=== PATIENT | female | born 1930 ===

== ENCOUNTER 2017-10-07 06:05 | Inpatient (IN) | payer OTHER ==
[~2017-10-07] VITALS: Ht 152.4 cm; Wt 46.7 kg
[2017-10-07] MEDS ORDERED: SYNTHROID50 MCG (06:28)
[2017-10-15] MEDS ORDERED: PYRIDOXINE HCL100 M1 PO (13:04)
[2017-10-15] MEDS ORDERED: Neurin-Sl Tablet Sl SL (13:04)
[2017-10-15] MEDS ORDERED: FAMOTIDINE20 MG PO (13:04)
[2017-10-15] MEDS ORDERED: Intestinex CAP PO (13:04)
[2017-10-15] MEDS ORDERED: SYNTHROID50 MCG PO (13:04)
[2017-10-15] MEDS ORDERED: LEVAQUIN750 MG PO (13:09)
[2017-10-15] MEDS ORDERED: BACTRIM DS TAB1 EACH PO (13:09)
== END 2017-10-15 14:02 | disposition home or self-care (01) | DRG 330 ==
LOC: ER 06:05 → SEC-K 11:36 → MEDJ 11:36 → MEDI 10-10 16:13 → SURH 10-10 16:13
PROVIDERS: Colon & Rectal Surgery
PROC: BB24ZZZ Computerized Tomography (CT Scan) of Bilateral Lungs (ICD-10-PCS; 2017-10-07)
PROC: 4A033R1 Measurement of Arterial Saturation, Peripheral, Percutaneous Approach (ICD-10-PCS; 2017-10-07)
PROC: 30233N1 Transfusion of Nonautologous Red Blood Cells into Peripheral Vein, Percutaneous Approach (ICD-10-PCS; 2017-10-07)
PROC: 0DBB4ZZ Excision of Ileum, Percutaneous Endoscopic Approach (ICD-10-PCS; 2017-10-10)
PROC: 0DBU4ZZ Excision of Omentum, Percutaneous Endoscopic Approach (ICD-10-PCS; 2017-10-10)
PROC: 07TC4ZZ Resection of Pelvis Lymphatic, Percutaneous Endoscopic Approach (ICD-10-PCS; 2017-10-10)
PROC: 4A12X4Z Monitoring of Cardiac Electrical Activity, External Approach (ICD-10-PCS; 2017-10-10)
PROC: 0DTF4ZZ Resection of Right Large Intestine, Percutaneous Endoscopic Approach (ICD-10-PCS; principal; 2017-10-10 09:15)
PROC: 3E0F7GC Introduction of Other Therapeutic Substance into Respiratory Tract, Via Natural or Artificial Opening (ICD-10-PCS; 2017-10-11)
DX: C18.2 Malignant neoplasm of ascending colon (principal); J47.1 Bronchiectasis with (acute) exacerbation; T81.4XXA Infection following a procedure, initial encounter; L03.311 Cellulitis of abdominal wall; D50.0 Iron deficiency anemia secondary to blood loss (chronic); E03.8 Other specified hypothyroidism; F03.90 Unspecified dementia, unspecified severity, without behavioral disturbance, psychotic disturbance, mood disturbance, and anxiety; J84.112 Idiopathic pulmonary fibrosis; H91.8X3 Other specified hearing loss, bilateral; R59.0 Localized enlarged lymph nodes; Z78.1 Physical restraint status